=== PATIENT | male | born 1985 | race Hispanic/Latino ===

== ENCOUNTER 2016-11-05 23:57 | Inpatient (IN) | payer SELFPAY ==
--- NOTE | 2016-11-06 01:25 | ED PDOC ---
HPI: Psych/Substance Abuse Time Seen by Provider: 11/06/16 00:10 Chief Complaint (Nursing): Psychiatric Evaluation Chief Complaint (Provider): Crisis Eval History Per: Patient Additional Complaint(s): As per pt. he told his girlfriend that he wanted to commit suicide by shooting himself. Pt. states he felt very stressed out at the time and believes he may have not handled the situation the correct way. Pt. states he does regret saying this. As per [employer] pt. was found with sitting down at home with a loaded gun next to him. Offers no physical complaints at this time. Denies SI/HI, hallucinations. Past Medical History Reviewed: Historical Data, Nursing Documentation, Vital Signs Vital Signs: Last Vital Signs Temp 98 F 11/06/16 00:16 Pulse 99 H 11/06/16 00:16 Resp 18 11/06/16 00:16 BP 150/78 11/06/16 00:16 Pulse Ox 98 11/06/16 00:16 - Medical History PMH: Post Traumatic Stress Disorder - Surgical History Surgical History: No Surg Hx - Family History Family History: States: No Known Family Hx - Home Medications Home Medications: Ambulatory Orders Medication Instructions Recorded No Known Home Med 11/06/16 - Allergies Allergies/Adverse Reactions: Allergies Allergy/AdvReac Type Severity Reaction Status Date / Time No Known Allergies Allergy Verified 11/06/16 00:16 Review of Systems ROS Statement: Except As Marked, All Systems Reviewed And Found Negative Psych: Positive for: Anxiety Physical Exam - Reviewed Nursing Documentation Reviewed: Yes Vital Signs Reviewed: Yes - Physical Exam Appears: Positive for: Well, Non-toxic, No Acute Distress Head Exam: Positive for: ATRAUMATIC, NORMAL INSPECTION, NORMOCEPHALIC Skin: Positive for: Normal Color, Warm, DRY Eye Exam: Positive for: EOMI, Normal appearance, PERRL ENT: Positive for: Normal ENT Inspection Neck: Positive for: Normal, Painless ROM Cardiovascular/Chest: Positive for: Regular Rate, Rhythm Respiratory: Positive for: CNT, Normal Breath Sounds Gastrointestinal/Abdominal: Positive for: Normal Exam, Bowel Sounds, Soft. Negative for: Tenderness Back: Positive for: Normal Inspection Extremity: Positive for: Normal ROM Neurologic/Psych: Positive for: Alert, Oriented - Laboratory Results Result Diagrams: 11/06/16 01:35 04/24/17 01:35 - ECG O2 Sat by Pulse Oximetry: 98 - Progress ED Course And Treament: Labs ordered. Pt. evaluated by crisis and arrangements made for admission. Pt. placed on 1:1. Disposition - Clinical Impression Clinical Impression: Depression - Patient ED Disposition Is Patient to be Admitted: Yes - Disposition Disposition Time: 03:11 Condition: STABLE
[2016-11-06 01:57] LABS: BASO % 0.3 % (0.0-2.0); EOS # 0.2 K/uL (0.0-0.7); EOS % 1.2 % (0.0-4.0); HEMATOCRIT 41.8 % (35.0-51.0); LYMPH # 1.5 K/uL (1.0-4.3); LYMPH % 10.6 % (20.0-40.0); MEAN CELL VOLUME 91.4 fl (80.0-94.0); MEAN CORPUSCULAR HEMOGLOBIN 30.7 pg (27.0-31.0); MEAN CORPUSCULAR HGB CONC 33.6 g/dL (33.0-37.0); MEAN PLATELET VOLUME 6.9 fl (7.2-11.7); MONO # 0.6 K/uL (0.0-0.8); MONO % 4.1 % (0.0-10.0); NEUT # 11.8 K/uL (1.8-7.0); NEUT % 83.8 % (50.0-75.0); RED CELL DISTRIBUTION WIDTH 12.8 % (11.5-14.5); WHITE BLOOD COUNT 14.1 K/uL (4.8-10.8)
[2016-11-06 02:02] LABS: CHLORIDE 107 mmol/L (98-107)
[2016-11-06 02:03] LABS: POTASSIUM 4.2 MMOL/L (3.6-5.0); SODIUM 143 mmol/l (132-148)
[2016-11-06 02:05] LABS: ALB/GLOB RATIO 1.4 (1.0-2.1); ALKALINE PHOSPHATASE 51 U/L (38-126); ALT/SGPT 34 U/L (21-72); AST/SGOT 28 U/L (17-59); BILIRUBIN,TOTAL 0.4 mg/dl (0.2-1.3); BLOOD UREA NITROGEN 13 mg/dl (9-20); CARBON DIOXIDE 19 mmol/L (22-30); GFR AFRICAN-AMERICAN > 60; TOTAL PROTEIN 8.2 G/DL (6.3-8.2)
[2016-11-06 02:06] LABS: ALCOHOL SERUM 10 mg/dl (0-10); CALCIUM 9.6 mg/dL (8.4-10.2); GLUCOSE,RANDOM 102 mg/dL (75-110)
[2016-11-06 02:13] LABS: RBC URINE 1 /hpf (0-3); URINE BILIRUBIN NEGATIVE (NEGATIVE); URINE BLOOD NEGATIVE (NEGATIVE); URINE COLOR YELLOW (YELLOW); URINE GLUCOSE (UA) NEG (Normal); URINE KETONE TRACE mg/dL (NEGATIVE); URINE LEUKOCYTE ESTERASE NEG Leu/uL (Negative); URINE PROTEIN 30 mg/dL (NEGATIVE); WBC URINE 1 /hpf (0-5)
[2016-11-06 03:44] VITALS: O2SAT 98
[2016-11-06] MEDS ORDERED: Magnesium Hydroxide Susp 30 ml UD PO PRN (03:46)
[2016-11-06] MEDS ORDERED: DiphenhydrAMINE 50 mg/ml Inj IM PRN (03:46)
[2016-11-06] MEDS ORDERED: Alum-Mag Hydrox-Simethicone Susp (30 mL) PO PRN (03:46)
[2016-11-06 07:28] LABS: HEMATOCRIT 42.8 % (35.0-51.0); MEAN CELL VOLUME 90.9 fl (80.0-94.0); MEAN CORPUSCULAR HEMOGLOBIN 30.6 pg (27.0-31.0); MEAN CORPUSCULAR HGB CONC 33.6 g/dL (33.0-37.0); RED CELL DISTRIBUTION WIDTH 13.1 % (11.5-14.5); WHITE BLOOD COUNT 12.9 K/uL (4.8-10.8)
[2016-11-06 07:44] LABS: T4 9.36 ug/dl (5.5-11.0)
[2016-11-06 07:58] LABS: THYROID STIMULATING HORMONE 1.04 mIU/ML (0.46-4.68)
--- NOTE | 2016-11-06 08:58 | PCM.PSYCH ---
Initial Psychiatric Evaluation - Initial Psychiatric Evaluation Type of Admission: Voluntary Legal Status: Capacity Chief Complaint (in patient's own words): "I did a stupid thing" Patient's Reaction to Hospitalization: HPI: 31 yo male w/ h/o PTSD, chronic pain, presented to the ED afer his gf called due to the patient making threats to shoot himself with a loaded gun. Patient is now minimizing the incident, stating that he acted in anger and should not have behaved that way. He denies current ideation to harm himself and contracts for safety on the unit. He states that he wants to live with help his friend, who is also a who is suffering from depression. He also wants to live for his 9 year old son and [place] and [place] caregiver. He states that he has participated in various forms of therapy in the past and has also taken medications, but is not agreeable to taking any antidepressant or other psychiatric medication at this time. He states that medical marijuana help been helpful for him in the past and he is distrustful of pharmaceuticals because of the side effects they cause. No psychosis/delusions/paranoia/SI/HI. He denies currently feeling depressed or anxious. He states that he was drinking on the night of the incident, which lead to his impulsive behavior, which he states he know it was "stupid" to point a gun at himself and stated that he should know better than that as a . He reports that he continues to have PTSD symptoms, which he states are relieved by marijuana. 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 Police reported that the first time girlfriend had called about a dispute and patient being depressed history of PTSD. Second time girlfriend was in the home it had punched a wall and stated that he was going to shoot himself. Pt. have a gun and other ammunition in the home. Police found a gun that was cocked and ready to shoot. Pt's girlfriend stated that patient had placed the gun on his head to kill himself. Pt. minimize the incident when he was reporting it to [employer] stating that he had made an statement that he wanted to hurt himself but he admitted that he was not acting rational, and he should had responded different after having an argument with girlfiriend. Pt. denied being presently suicidal and didn't disclose the police visit to his home twice today and the incident of placing the gun on himself that was already cocked and ready to use until he was confrongted by [employer] who stated to the patient that as she left his room to get him water, she questioned the police about the outcome of the weapon, and found out additional information that was not shared by patient during assessment. Pt. admitted that he had the gun loaded and that he stated that he wanted to shoot himself. Pt. denied any prior psychiatric treatment, stating that he had been treated for PTSD in the past and denied taking any medications. 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 Pt. is presently living with his girlfriend that he met a year ago. Pt. is a father of a 9 years old child that resides with his ex in [place]. Pt. 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 Pt. is not presently working. Pt. stated that today is his birthday and admitted that it was a stressful situation today and he had a lot of feelings "build up". feeling sad today. Pt. was informed of the admission process and was explained the difference of accepting admission as a voluntary patient or being referred for [place] [facility] Pt. was informed of the general admission process and was explained the 48 hours protocol. Pt. was explained that he could be transfer to a [facility] if that is his wish. Pt was told that he need to speak with a psychiatrist in the morning who could conduct a psychiatric evaluation. Pt. was explained that it is advice that he would cooperate with the admission and allow doctor to be able to treat him for his depression and history of PTSD. Pt. agreed to sign in for a voluntary admission after receiving disposition from Dr. Sotelo. Pt. was asked the choice of contacting the [facility], patient refused stating that he would sign voluntarily for admission. Pt. is not providing any collateral information stating that his phone is not charge and he can not get any phone numbers. CW received collateral information from police Lt. Rahel Richey who stated that the police responded twice to the home today. The first time his girlfriend reported that patient had called her stating that he was upset, depress and have a history of PTSD. Police responded spoke with patient and left as patient was calm and cooperative. The second call when they arrived girlfriend was in the home, pt. had punched a wall and had a gun in the open who was cocked. Pt's girlfriend stated that patien had held gun to his head. PPHx: Pt. denied any prior admissions, stating that he had been treated at the [facility] for PTSD, denied current medications, does not recall which medications he took in the past. 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 . +1 child. 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 +Cig/Etoh/Marijuana use. Medical Hx: Chronic back pain Surgical Hx: No h/o surgeries FHx: No family hx of mental illness All: NKDA Current Medications: Active Medications Generic Name Dose Route Start Last Admin Trade Name Freq PRN Reason Stop Dose Admin Acetaminophen 650 mg 11/06/16 03:46 Tylenol 325mg Tab PO Q4 PRN pain 1-7 Al Hydrox/Mg Hydrox/Simethicone 30 ml 11/06/16 03:46 Maalox Plus 30 Ml PO Q4 PRN Dyspepsia Diphenhydramine HCl 50 mg 11/06/16 03:46 Benadryl PO Q6 PRN Extrapyramidal Symptoms Diphenhydramine HCl 50 mg 11/06/16 03:46 Benadryl PO HS PRN Sleep Diphenhydramine HCl 50 mg 11/06/16 03:46 Benadryl IM Q6 PRN Extrapyramidal S/S Unable PO Haloperidol 5 mg 11/06/16 03:46 Haldol PO Q4 PRN Agitation Haloperidol Lactate 5 mg 11/06/16 03:46 Haldol IM Q4 PRN Agitation, Unable to Take PO Lorazepam 2 mg 11/06/16 03:46 Ativan PO Q4 PRN Anxiety/Agitation Lorazepam 2 mg 11/06/16 03:46 Ativan IM Q4 PRN Anxiety/Agitation,Unable PO Magnesium Hydroxide 30 ml 11/06/16 03:46 Milk Of Magnesia PO HS PRN Constipation Past Psychiatric History - Past Psychiatric History Pertinent Medical Hx (Current Medical&Sleep Prob, Allergies): Allergies Allergy/AdvReac Type Severity Reaction Status Date / Time No Known Allergies Allergy Verified 11/06/16 00:16 No Known Home Med 11/06/16 Review of Systems - Review of Systems All systems: reviewed and no additional remarkable complaints except - Psychiatric Psychiatric: As Per HPI, Mood Swings, Suicidal Ideation Mental Status Examination - Personal Presentation Personal Presentation: Looks stated age - Affect Affect: Broad - Motor Activity Motor Activity: Calm - Reliability in Providing Information Reliability in Providing Information: Good - Speech Speech: Organized - Mood Mood: Neutral - Formal Thought Process Formal Thought Process: No Impairment - Obsessions/Compulsions Obsessions: No Compulsions: No - Cognitive Functions Orientation: Person, Place, Situation, Time Attention/Concentration: Attentive Estimate of Intelligence: Average Judgement: Intact, as evidence by: Insight regarding need for hospitalization Memory: Recent intact, as evidence by: Ability to recall events of the day, Remote intact, as evidenced by: Abilit to recall sig. life events, Remote intact , as evidenced by: Ability to recall historical events - Risk Risk: Suicidal - Strength & Assets Inventory Strength & Assets Inventory: Intelligence, Employment history, Cooperative DSM 5 DX - DSM 5 DSM 5 Diagnosis: PTSD - Recommended/Plan of Treatment Treatment Recommendations and Plan of Treatment: 31 yo male with PTSD, admitted s/p making suicidal threats, now denying all mood symptoms, denies suicidal ideation, is able to contract for safety. -Admit to psychiatry -Patient counseled on the risks/benefits of antidepressants, patient is not agreeable at this time, stating that he would prefer therapy, more natural alternative and medical marijuana -Individual and group therapy -Obtain collateral from his brother -NO 1:1 indicated at this time as the patient can contract for safety Projected ELOS: 5 days Discharge Plan and Discharge Criteria: Discharge when psychiatrically stable - Smoking Cessation Smoking Cessation Initiated: No Reason for not providing: Patient declined
--- NOTE | 2016-11-06 10:46 | CARD ---
APPROVED REPORT EKG Measurement Heart [id number] <Conclusion> Normal sinus rhythm Nonspecific intraventricular conduction delay Borderline ECG
--- NOTE | 2016-11-06 17:00 | CP.PCM.CON ---
History of Present Illness - History of Present Illness History of Present Illness: 31 yo male with history of chronic low back pain and PTSD admitted to psyche unit because of suicidal ideation. Review of Systems - Review of Systems All systems: reviewed and no additional remarkable complaints except (aside from those mentioned above, 12 point system review were negative by me) Past Patient History - Past Social History Smoking Status: Heavy Smoker > 10 Cigarettes Daily Chewing Tobacco Use: No Cigar Use: No Alcohol: None Drugs: Cannabis - CARDIAC Hx Cardiac Disorders: No - PULMONARY Hx Respiratory Disorders: No - NEUROLOGICAL Hx Neurological Disorder: No - HEENT Hx HEENT Problems: No - RENAL Hx Chronic Kidney Disease: No - ENDOCRINE/METABOLIC Hx Endocrine Disorders: No - HEMATOLOGICAL/ONCOLOGICAL Hx Blood Disorders: No - INTEGUMENTARY Hx Dermatological Problems: No - MUSCULOSKELETAL/RHEUMATOLOGICAL Hx Musculoskeletal Disorders: No Hx Back Pain: Yes (Takes medical marijuana since 2013) - GASTROINTESTINAL Hx Gastrointestinal Disorders: No - GENITOURINARY/GYNECOLOGICAL Hx Genitourinary Disorders: No - PSYCHIATRIC Hx Substance Use: (uses medical marijuana since 2013) - SURGICAL HISTORY Hx Surgeries: No - ANESTHESIA Hx Anesthesia: No Meds Allergies/Adverse Reactions: Allergies Allergy/AdvReac Type Severity Reaction Status Date / Time No Known Allergies Allergy Verified 11/06/16 00:16 - Medications Medications: Current Medications Acetaminophen (Tylenol 325mg Tab) 650 mg PO Q4 PRN PRN Reason: pain 1-7 Al Hydrox/Mg Hydrox/Simethicone (Maalox Plus 30 Ml) 30 ml PO Q4 PRN PRN Reason: Dyspepsia Diphenhydramine HCl (Benadryl) 50 mg PO Q6 PRN PRN Reason: Extrapyramidal Symptoms Diphenhydramine HCl (Benadryl) 50 mg PO HS PRN PRN Reason: Sleep Diphenhydramine HCl (Benadryl) 50 mg IM Q6 PRN PRN Reason: Extrapyramidal S/S Unable PO Haloperidol (Haldol) 5 mg PO Q4 PRN PRN Reason: Agitation Haloperidol Lactate (Haldol) 5 mg IM Q4 PRN PRN Reason: Agitation, Unable to Take PO Lorazepam (Ativan) 2 mg PO Q4 PRN PRN Reason: Anxiety/Agitation Lorazepam (Ativan) 2 mg IM Q4 PRN PRN Reason: Anxiety/Agitation,Unable PO Magnesium Hydroxide (Milk Of Magnesia) 30 ml PO HS PRN PRN Reason: Constipation Physical Exam - Constitutional Appears: No Acute Distress - Head Exam Head Exam: ATRAUMATIC - Eye Exam Eye Exam: absent: Scleral icterus - ENT Exam ENT Exam: Mucous Membranes Moist - Neck Exam Neck exam: Negative for: Meningismus - Respiratory Exam Respiratory Exam: absent: Rhonchi, Wheezes, Respiratory Distress - Cardiovascular Exam Cardiovascular Exam: REGULAR RHYTHM, +S1, +S2 - GI/Abdominal Exam GI & Abdominal Exam: Soft. absent: Tenderness - Rectal Exam Rectal Exam: Deferred - Extremities Exam Extremities exam: Negative for: calf tenderness, pedal edema - Neurological Exam Neurological exam: Alert, Oriented x3 - Psychiatric Exam Psychiatric exam: Normal Affect - Skin Skin Exam: Dry, Intact Results - Vital Signs Recent Vital Signs: Last Vital Signs Temp 98.4 F 11/06/16 15:48 Pulse 66 11/06/16 15:48 Resp 20 11/06/16 15:48 BP 138/94 H 11/06/16 15:48 Pulse Ox 98 11/06/16 03:44 - Labs Result Diagrams: 11/06/16 07:03 11/06/16 01:35 Labs: Laboratory Results - last 24 hr 11/06/16 07:03 WBC 12.9 H RBC 4.71 Hgb 14.4 Hct 42.8 MCV 90.9 MCH 30.6 MCHC 33.6 RDW 13.1 Plt Count 277 Hemoglobin A1c 5.6 Triglycerides 58 Cholesterol 173 LDL Cholesterol Direct 118 HDL Cholesterol 40 Thyroxine (T4) 9.36 Total T3 2.29 TSH 3rd Generation 1.04 Assessment & Plan (1) Suicidal ideation Status: Acute Comment: psyche is managing
--- NOTE | 2016-11-07 13:21 | PCM.PYCHPN ---
Psychiatric Progress Note - Psychiatric Progress Note Patient seen today, length of contact: Patient evaluated, case discussed with team, chart reviewed, 35 min Patient Chief Complaint: "I'm feeling calmer" Problems Identified/Issues Discussed: No significant events overnight. Patient calm, cooperative and engaging appropriately with staff and peers. 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 He continues to express remorse about his threat to harm himself and denies current ideation to harm himself or passive ideation to . He continues to be goal oriented and is hopeful for the future. He discussed his plan to move back to [place], stay with his brother in [place] for a few weeks before moving back to [place] and visiting his son. Medication Change: No (Patient not interested in medications at this time) Medical Record Reviewed: No Mental Status Examination - Cognitive Function Orientation: Person, Place, Situation, Time Memory: Intact Attention: WNL Concentration: WNL Association: [facility] Fund of Knowledge: WN - Mood Mood: Neutral - Affect Affect: Broad - Speech Speech: Appropriate - Formal Thought Process Formal Thought Process: No Impairment - Suicidal Ideation Suicidal Ideation: No - Homicidal Ideation Homicidal Ideation: No Goal/Treatment Plan - Goal/Treatment Plan Need for Continued Stay: Remain at risks for inpatient hospitalization Progress Toward Problem(s) and Goals/Treatment Plan: 31 yo male with PTSD, admitted s/p making suicidal threats, now denying all mood symptoms, denies suicidal ideation, is able to contract for safety. -Patient counseled on the risks/benefits of antidepressants, patient is not agreeable at this time, stating that he would prefer therapy, more natural alternative and medical marijuana -Individual and group therapy -NO 1:1 indicated at this time as the patient can contract for safety Estimated Date of D/C: 11/10/16 - Smoking Cessation Smoking Cessation Initiated: No Reason for not providing: Patient declined
[2016-11-08 06:00] VITALS: TEMP 97.1
--- NOTE | 2016-11-08 10:35 | PCM.PYCHPN ---
Psychiatric Progress Note - Psychiatric Progress Note Patient seen today, length of contact: Patient evaluated, case discussed with team, chart reviewed, 35 min Patient Chief Complaint: "I'm feeling better" Problems Identified/Issues Discussed: No significant events overnight. Patient calm, cooperative and engaging appropriately with staff and peers. Patient affect is broad. He continues to deny feeling depressed/anxious. He denies ideation to harm himself or passive ideation to . 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 He has good insight into his recent behaviors and good judgment. [employer] spoke with the patient's brother, Keshav Perez, , who is coming to pick him up tomorrow, stay with him, help him pack up his home and move [place]. He does not believe the patient is an acute danger to himself or others. Medication Change: No (Patient not interested in medications at this time) Medical Record Reviewed: No Mental Status Examination - Cognitive Function Orientation: Person, Place, Situation, Time Memory: Intact Attention: WNL Concentration: WNL Association: [facility] Fund of Knowledge: [facility] Decription of patient's judgement and insights: Good insight/judgment - Mood Mood: Neutral - Affect Affect: Broad - Speech Speech: Appropriate - Formal Thought Process Formal Thought Process: No Impairment Psychotic Thoughts and Behaviors: No AH/VH/paranoia - Suicidal Ideation Suicidal Ideation: No - Homicidal Ideation Homicidal Ideation: No Goal/Treatment Plan - Goal/Treatment Plan Progress Toward Problem(s) and Goals/Treatment Plan: 31 yo male with PTSD, admitted s/p making suicidal threats, now denying all mood symptoms, denies suicidal ideation, is able to contract for safety. -Patient counseled on the risks/benefits of antidepressants, patient is not agreeable at this time, stating that he would prefer therapy, more natural alternative and medical marijuana -Individual and group therapy -Likely discharge to home tomorrow, under the care of his brother. Estimated Date of D/C: 11/09/16
[2016-11-09 05:52] VITALS: BP 116/75; PULSE 58; RESP 18
--- NOTE | 2016-11-09 09:47 | PCM.PYCHDC ---
Mental Status Examination - Mental Status Examination Orientation: Person, Place, Situation, Time Memory: Intact Mood: Neutral Affect: Broad Speech: Appropriate Attention: WNL Concentration: WNL Association: WNL Fund of Knowledge: WNL Formal Thought Process: No Impairment Description of patient's judgement and insight: Good insight/judgment Psychotic Thoughts and Behaviors: No AH/VH/paranoia Suicidal Ideation: No Current Homicidal Ideation?: No Discharge Summary - Discharge Note Reason for Hospitalization: HPI: 31 yo male w/ h/o PTSD, chronic pain, presented to the ED afer his gf called due to the patient making threats to shoot himself with a loaded gun. Patient is now minimizing the incident, stating that he acted in anger and should not have behaved that way. He denies current ideation to harm himself and contracts for safety on the unit. He states that he wants to live with help his friend, who is also a who is suffering from depression. 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 He states that he has participated in various forms of therapy in the past and has also taken medications, but is not agreeable to taking any antidepressant or other psychiatric medication at this time. He states that medical marijuana help been helpful for him in the past and he is distrustful of pharmaceuticals because of the side effects they cause. No psychosis/delusions/paranoia/SI/HI. He denies currently feeling depressed or anxious. He states that he was drinking on the night of the incident, which lead to his impulsive behavior, which he states he know it was "stupid" to point a gun at himself and stated that he should know better than that as a . He reports that he continues to have PTSD symptoms, which he states are relieved by marijuana. Additional collateral history from [employer] worker: 31 y/o male transported and accompanied by [place] Police after they responded to the home twice due to suicidal ideation with plan of shooting himself. Police reported that the first time girlfriend had called about a dispute and patient being depressed history of PTSD. Second time girlfriend was in the home it had punched a wall and stated that he was going to shoot himself. Pt. have a gun and other ammunition in the home. Police found a gun that was cocked and ready to shoot. Pt's girlfriend stated that patient had placed the gun on his head to kill himself. Pt. minimize the incident when he was reporting it to [employer] stating that he had made an statement that he wanted to hurt himself but he admitted that he was not acting rational, and he should had responded different after having an argument with girlfiriend. Pt. denied being presently suicidal and didn't disclose the police visit to his home twice today and the incident of placing the gun on himself that was already cocked and ready to use until he was confrongted by [employer] who stated to the patient that as she left his room to get him water, she questioned the police about the outcome of the weapon, and found out additional information that was not shared by patient during assessment. Pt. admitted that he had the gun loaded and that he stated that he wanted to shoot himself. Pt. denied any prior psychiatric treatment, stating that he had been treated for PTSD in the past and denied taking any medications. 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 Pt. is presently living with his girlfriend that he met a year ago. Pt. is a father of a 9 years old child that resides with his ex in [place]. Pt. 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 Pt. is not presently working. Pt. stated that today is his birthday and admitted that it was a stressful situation today and he had a lot of feelings "build up". feeling sad today. Pt. was informed of the admission process and was explained the difference of accepting admission as a voluntary patient or being referred for screening at [facility]. Pt. was informed of the general admission process and was explained the 48 hours protocol. Pt. was explained that he could be transfer to a [facility] if that is his wish. Pt was told that he need to speak with a psychiatrist in the morning who could conduct a psychiatric evaluation. Pt. was explained that it is advice that he would cooperate with the admission and allow doctor to be able to treat him for his depression and history of PTSD. Pt. agreed to sign in for a voluntary admission after receiving disposition from Dr. Sotelo. Pt. was asked the choice of contacting the [facility], patient refused stating that he would sign voluntarily for admission. Pt. is not providing any collateral information stating that his phone is not charge and he can not get any phone numbers. CW received collateral information from police Lt. Rahel Dooleyabdirahmanjudah who stated that the police responded twice to the home today. The first time his girlfriend reported that patient had called her stating that he was upset, depress and have a history of PTSD. Police responded spoke with patient and left as patient was calm and cooperative. The second call when they arrived girlfriend was in the home, pt. had punched a wall and had a gun in the open who was cocked. Pt's girlfriend stated that patien had held gun to his head. PPHx: Pt. denied any prior admissions, stating that he had been treated at the [facility] for PTSD, denied current medications, does not recall which medications he took in the past. 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 . +1 child. 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 +Cig/Etoh/Marijuana use. Medical Hx: Chronic back pain Surgical Hx: No h/o surgeries FHx: No family hx of mental illness All: NKDA Consultations:: List each consultation separately and include: 1. Reason for request. 2. Findings. 3. Follow-up Consultations: Routine medicine consult- no acute medical issues Summary of Hospital Course include:: 1. Description of specific treatment plan utilized for patients during their course of treatmen. 2. Summarize the time- course for resolution of acute symptoms and/or regressed behaviors. 3. Describe issues identified and worked on during hospitalization. 4. Describe medication utilized. 5. Describe medical problems identified and treated. 6. Reassessment of suicide risk Summary of Hospital Course: Patient admitted to the hospital. He participated in individual and group therapy. He declined antidepressants or other psychotropic medications, stating that he prefers more holistic treatment methods and medical marijuana. He has good insight. He denies ideation to harm himself or others. He will be discharged to home under the care of his brother. He is psychiatrically stable for discharge. - Final Diagnosis (DSM 5) Condition upon Discharge: STABLE DSM 5: PTSD, Adjustment disorder w/ depressed mood Disposition: HOME/ ROUTINE Follow-up Treatment Plan: 31 yo male with PTSD, admitted s/p making suicidal threats, now denying all mood symptoms, denies suicidal ideation, is able to contract for safety. He is psychiatrically stable for discharge. -Patient counseled on the risks/benefits of antidepressants, patient is not agreeable at this time, stating that he would prefer therapy, more natural alternative and medical marijuana -Individual and group therapy -Discharge to home, under the care of his brother. - Smoking Cessation Smoking Cessation Medication prescribed: No Reason for not providing: Patient declined - Antipsychotic Medications Pt discharged on 2 or more routine antipsychotic medications: No
== END 2016-11-09 13:06 | disposition home or self-care (01) | DRG 882 ==
LOC: H.ER 23:57 → H.ERHOLD 11-06 03:11 → H.STEP 11-06 03:41
PROVIDERS: ADMIT Psychiatry & Neurology Psychiatry; ATTEND Psychiatry & Neurology Psychiatry
PROC: GZHZZZZ Group Psychotherapy (ICD-10-PCS; principal; 2016-11-06)
PROC: GZ51ZZZ Individual Psychotherapy, Behavioral (ICD-10-PCS; 2016-11-06)
DX: F43.10 Post-traumatic stress disorder, unspecified (principal); R45.851 Suicidal ideations; F43.21 Adjustment disorder with depressed mood; G89.29 Other chronic pain; F17.210 Nicotine dependence, cigarettes, uncomplicated